=== PATIENT | female | born 1985 | race Caucasian/White ===

== ENCOUNTER 2018-11-15 08:29 | Emergency (ER) | payer OTHER ==
[2018-11-15 08:52] VITALS: BP 116/74
[2018-11-15] MEDS ORDERED: predniSONE TAB* 20 MG PO ONE (09:16)
[2018-11-15] MEDS ORDERED: Albuterol 2.5 MG/3 ML NEB.SOL* (0.083%) INH ONE (09:16)
--- NOTE | 2018-11-15 09:16 | UC ---
General HPI - HPI Summary HPI Summary: pt c/o being ill for 5-6 days. she is c/o chills, head congestion, cough, sob and occasional wheezing. + muscle aches and fatigue. she had a sore throat and fever at onset which resolved. she was she by her pcp and tx with Biaxin x 7 days. - History of Current Complaint Chief Complaint: UCRespiratory Stated Complaint: COUGH/CONGESTION Time Seen by Provider: 11/15/18 08:59 Hx Obtained From: Patient Hx Last Menstrual Period: 11/09/18 Pain Intensity: 0 Associated Signs & Symptoms: Negative: Chest Pain - Allergy/Home Medications Allergies/Adverse Reactions: Allergies Allergy/AdvReac Type Severity Reaction Status Date / Time cephalexin Allergy Hives Verified 11/15/18 10:20 Penicillins Allergy Rash Verified 11/15/18 10:20 Home Medications: Home Medications Benzonatate CAP* [Tessalon 100 MG CAP*] 200 mg PO ONCE 11/15/18 [History Confirmed 11/15/18] Clarithromycin TAB* [Biaxin 500 MG TAB*] 500 mg PO BID 11/15/18 [History Confirmed 11/15/18] GuaiFENesin DM* [Robitussin DM*] 10 ml PO Q6H PRN 11/15/18 [History Confirmed ] Phenylephrine/Dm/Acetaminop/GG [Tylenol Cold-Flu Severe Caplet] 2 each PO Q6H PRN 11/15/18 [History Confirmed 11/15/18] PMH/Surg Hx/FS Hx/Imm Hx Previously Healthy: Yes - Surgical History Surgical History: Yes Surgery Procedure, Year, and Place: Right Inguinal Herniorrhaphy, 1992, [place] ; Endometreosis Laporoscapy, 2007, [place] - Social History Occupation: Employed Full-time Alcohol Use: Occasionally Substance Use Type: None Smoking Status (MU): Former Smoker Type: Cigarettes Amount Used/How Often: 1/2 ppd Length of Time of Smoking/Using Tobacco: ON and OFF Since Age 13 Have You Smoked in the Last Year: Yes When Did the Patient Quit Smoking/Using Tobacco: 11/11/18 - Immunization History Hx Tetanus, Diphtheria Vaccination: Yes Review of Systems All Other Systems Reviewed And Are Negative: No Cardiovascular: Negative: Palpitations, Chest Pain Gastrointestinal: Negative: Abdominal Pain, Vomiting, Diarrhea, Nausea Physical Exam Triage Information Reviewed: Yes Appearance: Well-Appearing Vital Signs: Initial Vital Signs Temp 98.2 F 11/15/18 08:40 Pulse 100 11/15/18 08:40 Resp 20 11/15/18 08:40 BP 116/74 11/15/18 08:40 Pulse Ox 100 11/15/18 08:40 Vital Signs Reviewed: Yes Eyes: Positive: Conjunctiva Clear ENT: Positive: Pharynx normal, Nasal congestion, Nasal drainage - clear, TMs normal Neck: Positive: Supple, Nontender, No Lymphadenopathy Respiratory: Positive: Lungs clear, No accessory muscle use, Decreased breath sounds - LLL. Negative: Crackles, Rhonchi, Wheezing Cardiovascular: Positive: RRR, No Murmur. Negative: Tachycardia Abdomen Description: Positive: Nontender, No Organomegaly, Soft Bowel Sounds: Positive: Present Neurological: Positive: Alert Psychological: Positive: Age Appropriate Behavior Skin Exam: Normal Diagnostics - Laboratory Lab Results: Urine hcg for xray=neg. rapid flu=neg. - Radiology No standard instances Radiology Interpretation Completed By: Radiologist - NO ACTIVE CARDIOPULMONARY DISEASE. Re-Evaluation - Re-Evaluation First Eval Re-Evaluation Time: 10:30 Change: Improved - FEELS BETTER AND MUCH LESS COUGH. Course/Dx - Differential Dx - Multi-Symptom Differential Diagnoses: Other - non toxic. not hypoxic. nad on cxr. flu=neg. will tx with steroid and albuterol. - Diagnoses Provider Diagnosis: URI (upper respiratory infection), Bronchitis Discharge ED - Sign-Out/Discharge Documenting (check all that apply): Patient Departure All imaging exams completed and their final reports reviewed: Yes - Discharge Plan Condition: Stable Disposition: HOME Prescriptions: Albuterol HFA INHALER* [Ventolin HFA Inhaler*] 2 puff INH Q6H #1 mdi predniSONE TAB* [Deltasone 20 MG TAB*] 40 mg PO DAILY 4 Days #8 tab Patient Education Materials: Upper Respiratory Infection (DC), Acute Bronchitis (ED) Forms: *Work Release Referrals: Faisal Jean MD [Primary Care Provider] - 5 Days Additional Instructions: COMPLETE THE BIAXIN DIRECTED. - Billing Disposition and Condition Condition: STABLE Disposition: Home
[2018-11-15 09:42] LABS: Influenza A Molecular NEGATIVE (Negative); Influenza B Molecular NEGATIVE (Negative)
== END 2018-11-15 10:47 | disposition home or self-care (01) ==
LOC: UCCORT 08:29
DX: J06.9 Acute upper respiratory infection, unspecified (principal); J40 Bronchitis, not specified as acute or chronic; Z88.0 Allergy status to penicillin; Z88.1 Allergy status to other antibiotic agents; Z87.891 Personal history of nicotine dependence
CPT/HCPCS: 71046; 84702; 99212; G0463; J7512